=== PATIENT | female | born 1935 | race Caucasian/White ===

== ENCOUNTER 2023-11-12 15:26 | Outpatient (CLI) | payer MEDICARE, SELFPAY ==
--- NOTE | 2023-11-12 15:34 | ECHO_ITS ---
Patient Info Name: Alda Kelly Age: 88 years : 1935 Gender: Female Ht: 61 in Wt: 153 lbs BSA: 1.75 m2 HR: 70 bpm BP: 129 / 80 mmHg Technical Quality: Fair Exam Date: 11/12/2023 3:44 PM Exam Location: Echo Lab Patient Status: Outpatient Admit Date: 11/12/2023 Staff Ordering Physician: Jeremie Flores DO Sample Sewer: Lyly Hernandez RDCS Attending Provider: Jeremie Flores DO Referring Physician: Mark WASHBURN; Exam Type: CA echo doppler color flow Study Info Indications R60.0 - Localized edema Complete two-dimensional, color flow and Doppler transthoracic echocardiogram is performed. Summary 1. Complete two-dimensional, color flow and Doppler transthoracic echocardiogram is performed. 2. Left ventricular chamber dimension is normal. 3. Left ventricular systolic function is normal, estimated at 65-70%. 4. The left ventricular diastolic function is grade I diastolic dysfunction. 5. E/e' 10 is mildly elevated. 6. Left atrial chamber dimension is mildly enlarged. 7. There is mild aortic valve sclerosis. 8. There is mild mitral valve regurgitation. 9. There is mild tricuspid valve regurgitation. 10. No pulmonary hypertension, estimated pulmonary arterial systolic pressure is 27 mmHg. Left Ventricle E/e' 10 is mildly elevated. Left ventricular chamber dimension is normal. Left ventricular systolic function is normal, estimated at 65-70%. The left ventricular diastolic function is grade I diastolic dysfunction. Right Ventricle Right ventricular systolic function is normal and with normal TAPSE 2.3 cm. Right ventricular chamber dimension is normal. Left Atria Left atrial chamber dimension is mildly enlarged. Right Atria Right atrial chamber dimension is normal. Aortic Valve The aortic valve is trileaflet. There is mild aortic valve sclerosis. There is no aortic valve stenosis. There is no aortic valve regurgitation. Pulmonic Valve There is no pulmonic regurgitation. Mitral Valve There is no mitral valve stenosis. There is mild mitral valve regurgitation. Tricuspid Valve There is mild tricuspid valve regurgitation. No pulmonary hypertension, estimated pulmonary arterial systolic pressure is 27 mmHg. Pericardium/Pleural There is no pericardial effusion. Inferior Vena Cava Normal inferior vena cava with >50% collapse upon inspiration consistent with normal right atrial pressure, 5 mmHg. Aorta The aortic root size at the sinus of Valsalva is normal. Left Ventricular Outflow Tract Name Value Normal LVOT 2D LVOT Diameter 1.9 cm LVOT Doppler LVOT Peak Gradient 4 mmHg LVOT Mean Gradient 2 mmHg LVOT VTI 25 cm LVOT VTI/AV VTI Ratio 1.0 LVOT Stroke Volume 71 ml LVOT CO 4.5 l/min LVOT CI 2.6 l/min/m2 Pulmonic Valve Name Value Normal RVOT Doppler
== END 2023-11-12 15:27 | disposition home or self-care (01) ==
LOC: ANHCARD 15:29
PROVIDERS: PCP Nurse Practitioner Family; Visit Provider Internal Medicine Cardiovascular Disease
DX: R60.0 Localized edema (principal); I34.0 Nonrheumatic mitral (valve) insufficiency; I35.1 Nonrheumatic aortic (valve) insufficiency; I36.1 Nonrheumatic tricuspid (valve) insufficiency
CPT/HCPCS: 93306

== ENCOUNTER 2023-11-20 07:40 | Outpatient (RCR) | payer MEDICARE, SELFPAY ==
[2023-10-08 14:05] VITALS: BMI 28.3
--- NOTE | 2023-12-10 11:12 | PCWOUND ---
WOCN NOTE Daughter left voicemail to cancel appointment for tomorrow 12/11/23. States wound is looking good and they are going to continue using the antibiotic ointment. daughter did not want to reschedule appointment at this time.
== END 2024-01-06 23:59 | disposition home or self-care (01) ==
LOC: ANHWOC 07:40
PROVIDERS: PCP Nurse Practitioner Family; Visit Provider Nurse Practitioner Family
DX: L97.319 Non-pressure chronic ulcer of right ankle with unspecified severity (principal)
CPT/HCPCS: 29581; 99214; A9270; G0463

== ENCOUNTER 2025-05-04 07:29 | Outpatient (RCR) | payer MEDICARE, SELFPAY ==
--- NOTE | 2025-02-03 13:05 | WNDPHOTO ---
PHOTO ONLY - See Nursing Notes and/ or assessments for documentation.
[2025-02-03 13:32] VITALS: BMI 30.7
== END 2025-05-04 23:59 | disposition home or self-care (01) ==
LOC: ANHWOC 07:29
PROVIDERS: PCP Nurse Practitioner Family; Visit Provider Nurse Practitioner Family
DX: S81.801A Unspecified open wound, right lower leg, initial encounter (principal)
CPT/HCPCS: 29581; A9270